=== PATIENT | male | born 1990 | race Caucasian/White ===

== ENCOUNTER → 2016-11-25 | Outpatient (CLI) | payer OTHER ==
[~2016-11-25] MED LIST: ALEVE 220MG220 MG PO; MVI
== END ==
LOC: COL.LAB 13:48
DX: A04.7 Enterocolitis due to Clostridium difficile (principal)

== ENCOUNTER → 2023-12-29 | Outpatient (CLI) | payer BC | LOC: COL.RAD 09:41 | DX: R22.2 Localized swelling, mass and lump, trunk (principal) ==